=== PATIENT | male | born 1950 | race Caucasian/White ===

== ENCOUNTER → 2020-12-01 | Outpatient (CLI) | payer MEDICARE, SELFPAY ==
--- NOTE | 2020-12-01 10:45 | CYST_PTH ---
PATIENT: ALO DIAZ LOC: [facility] U#:[id number] AGE/SX: 69/M ROOM: RE12/01/[address]: Dr. Terrance Huffman MD : [id number] BED: DIS: 12/01/2020 SPEC #: [id number] RECD: 12/01/20 14:55 STATUS: WILLIAM RESabrina #: [id number] CLAUDIA: 12/01/20 10:[address]: Terrance Huffman DEPT: SURGICAL PATHOLOGY RECD BY: Aline Jefferson ENTERED: 12/04/20 07:48 SP TYPE: Cyst OTHR DR: JAZ Tissues: CYST Procedures: Surgery Specimen Level III HEADER OPERATION: Trigger finger release, right ring finger, cyst removal PRE-OP DIAGNOSIS: Cyst, right ring finger TISSUE SUBMITTED: Cyst, right ring finger MICROSCOPIC DIAGNOSIS Cyst, right ring finger, biopsy: Consistent with ganglion cyst. BETTY:kenny 12/05/2020 MICROSCOPIC DESCRIPTION Slides are reviewed. GROSS DESCRIPTION Received in fixative is one container labeled with the patient's name and designated cyst of right finger. The specimen consists of a single irregular fragment of white-yellow soft tissue measuring 0.3 x 0.2 x 0.1 cm. The specimen is totally submitted in one cassette. / AM:kenny 12/04/20 TC:5 CPT: 24104
== END | disposition home or self-care (01) ==
LOC: LABSPEC 15:08
PROVIDERS: Referring Provider Specialist; Visit Provider Specialist
DX: L72.8 Other follicular cysts of the skin and subcutaneous tissue (principal)
CPT/HCPCS: 88304